=== PATIENT | female | born 1945 | race Caucasian/White ===

== ENCOUNTER → 2018-10-16 | Outpatient (CLI) | payer MEDICARE, OTHER | LOC: PT 08:49 | DX: M16.11 Unilateral primary osteoarthritis, right hip (principal) ==

== ENCOUNTER 2018-12-27 09:00 | Outpatient (RCR) | payer MEDICARE, OTHER | END 2019-01-28 | disposition still patient (30) | LOC: PT | DX: M25.551 Pain in right hip (principal); Z96.641 Presence of right artificial hip joint ==

== ENCOUNTER 2020-09-01 09:00 | Outpatient (RCR) | payer MEDICARE, OTHER | END 2020-11-18 | LOC: PT | DX: M17.12 Unilateral primary osteoarthritis, left knee (principal) ==